=== PATIENT | male | born 1950 | race Caucasian/White ===

== ENCOUNTER → 2016-09-04 | Outpatient (CLI) | payer MEDICARE, OTHER ==
[~2016-09-04] MED LIST: ASPIR-LOW81 MG PO; AVODART0.5 MG PO; CELEBREX200 MG PO; CIPRO500 MG PO; COUMADIN4 MG PO; Coumadin,Jantoven PO; DOCUSATE SODIU100 MG PO; ENDOCET 5-3251 EACH PO; Ecotrin PO; FLOMAX0.4 MG PO; Feosol PO; IRON325 MG PO; PERCOCET 5/31 TABLET PO; SENOKOT S,PE1 TABLET PO; Senokot S,Pericolace PO; TORADOL10 MG PO; VICODIN ES 7.51 EAC1 PO; Vicodin,Lortab 5/500 PO; Vicodin,Norco 5/325 PO; ZOFRAN4 MG PO; celeBREX PO
== END | disposition home or self-care (01) ==
LOC: CDC 08:40
DX: Z01.810 Encounter for preprocedural cardiovascular examination (principal); K40.90 Unilateral inguinal hernia, without obstruction or gangrene, not specified as recurrent
CPT/HCPCS: 93000

== ENCOUNTER 2016-09-10 09:38 | Day surgery (SDC) | payer OTHER ==
[~2016-09-10] VITALS: Ht 182.9 cm; Wt 114.7 kg
[2016-09-10 10:04] VITALS: BP 136/82
[2016-09-10] MEDS ORDERED: PERCOCET 5/31 TABLET PO (13:54)
[2016-09-10 15:20] VITALS: BP 121/74
[2016-09-10 16:19] VITALS: BP 119/72
== END 2016-09-10 16:28 | disposition home or self-care (01) ==
LOC: SDC 09:38
PROC: 0YQ60ZZ Repair Left Inguinal Region, Open Approach (ICD-10-PCS; principal; 2016-09-10)
DX: K40.90 Unilateral inguinal hernia, without obstruction or gangrene, not specified as recurrent (principal); Z87.891 Personal history of nicotine dependence
CPT/HCPCS: C1781; J0690; J1100; J1170; J2405; J3010

== ENCOUNTER → 2018-03-19 | Outpatient (CLI) | payer MEDICARE, OTHER | END | disposition home or self-care (01) | LOC: CDC 08:14 | DX: Z01.810 Encounter for preprocedural cardiovascular examination (principal); M48.061 Spinal stenosis, lumbar region without neurogenic claudication | CPT/HCPCS: 93000 ==